=== PATIENT | male | born 1940 | race Caucasian/White ===

== ENCOUNTER → 2018-10-21 | Outpatient (CLI) | payer MEDICARE ==
[~2018-10-21] MED LIST: TELM40T PO; TMSL.4C PO; TRAM-21 PO
== END ==
LOC: RAD 08:05
PROVIDERS: ATTEND Family Medicine
DX: M54.5 Low back pain (principal); Z53.8 Procedure and treatment not carried out for other reasons

== ENCOUNTER → 2019-03-30 | Outpatient (CLI) | payer MEDICARE | LOC: CARD 11:45 | PROVIDERS: ATTEND Family Medicine | DX: I49.9 Cardiac arrhythmia, unspecified (principal) ==

== ENCOUNTER 2023-01-22 04:11 | Emergency (ER) | payer MEDICARE ==
[~2023-01-22] VITALS: Ht 182.9 cm; Wt 75.0 kg
[2023-01-22 05:07] LABS: BASOPHILS % (AUTO) 1 % (0-10); EOSINOPHILS # (AUTO) 0.1 10^3/uL (0.0-0.3); EOSINOPHILS % (AUTO) 2 % (0-10); HEMATOCRIT 37 % (40-54); HEMOGLOBIN 12.8 g/dL (13.3-17.7); LYMPHOCYTES % (AUTO) 28 % (12-44); MEAN CORPUSCULAR HEMOGLOBIN 30 pg (25-34); MEAN CORPUSCULAR HGB CONC 35 g/dL (32-36); MEAN CORPUSCULAR VOLUME 87 fL (80-99); MEAN PLATELET VOLUME 10.4 fL (9.0-12.2); MONOCYTES # (AUTO) 0.6 10^3/uL (0.0-1.0); MONOCYTES % (AUTO) 9 % (0-12); NEUTROPHILS # (AUTO) 4.2 10^3/uL (1.8-7.8); NEUTROPHILS % (AUTO) 60 % (42-75); PLATELET COUNT 172 10^3/uL (130-400)
[2023-01-22 05:14] LABS: ALBUMIN 3.9 GM/DL (3.2-4.5); CHLORIDE 104 MMOL/L (98-107); POTASSIUM 3.3 MMOL/L (3.6-5.0); SODIUM 139 MMOL/L (135-145)
[2023-01-22 05:15] LABS: INR 1.1 (0.8-1.4)
[2023-01-22 05:16] LABS: AMYLASE 25 U/L (25-125); CALCIUM 8.8 MG/DL (8.5-10.1)
[2023-01-22 05:17] LABS: GLUCOSE 93 MG/DL (70-105); TOTAL PROTEIN 6.4 GM/DL (6.4-8.2)
[2023-01-22 05:18] LABS: CARBON DIOXIDE 26 MMOL/L (21-32)
[2023-01-22 05:19] LABS: BILIRUBIN,TOTAL 0.9 MG/DL (0.1-1.0)
[2023-01-22 05:20] LABS: ALKALINE PHOSPHATASE 49 U/L (40-136); GFR ESTIMATED 68
[2023-01-22 05:21] LABS: BUN/CREATININE RATIO 10
[2023-01-22 05:22] LABS: ERYTHROCYTE SEDIMENTATION RATE 15 MM/HR (0-30)
[2023-01-22 05:23] LABS: ALANINE AMINOTRANSFERASE 10 U/L (0-55); MAGNESIUM 2.3 MG/DL (1.6-2.4)
[2023-01-22 05:24] LABS: LIPASE 16 U/L (8-78)
[2023-01-22] MEDS ORDERED: LACTATED RINGERS 1,000 ML IV ONE ×2 (05:30→07:30)
[2023-01-22 05:32] LABS: ACETAMINOPHEN < 10 UG/ML (10-30)
[2023-01-22 05:44] LABS: TSH (THYROID ANALYZER) 1.27 UIU/ML (0.35-4.94)
[2023-01-22 05:52] LABS: BILIRUBIN,URINE 1+ (NEGATIVE); CLARITY,URINE CLEAR; COLOR,URINE DARK YELLOW; GLUCOSE, URINE (UA) TRACE (NEGATIVE); KETONES,URINE NEGATIVE (NEGATIVE); LEUKOCYTE ESTERASE ,URINE NEGATIVE (NEGATIVE); NITRITE,URINE NEGATIVE (NEGATIVE); PROTEIN,URINE TRACE (NEGATIVE)
[2023-01-22 06:10] LABS: AMPHETAMINE SCREEN, URINE NEGATIVE (NEGATIVE); BARBITURATE SCREEN URINE NEGATIVE (NEGATIVE); BENZODIAZEPINES SCREEN URINE NEGATIVE (NEGATIVE); CANNABINOID SCREEN, URINE NEGATIVE (NEGATIVE); COCAINE SCREEN URINE NEGATIVE (NEGATIVE); METHADONE STAT NEGATIVE (NEGATIVE); OPIATE SCREEN URINE NEGATIVE (NEGATIVE); OXYCODONE STAT NEGATIVE (NEGATIVE); PROPOXYPHENE STAT NEGATIVE (NEGATIVE); TRICYCLIC ANTIDEPRESSANTS SCRE NEGATIVE (NEGATIVE)
[2023-01-22 06:14] LABS: AMORPHOUS SEDIMENT,UR FEW AMOR URATES /LPF; BACTERIA,URINE NEGATIVE /HPF; SQUAMOUS EPITHELIAL CELL,UR RARE /HPF; WBC,URINE 0-2 /HPF
--- NOTE | 2023-01-22 06:23 | ED General ---
General Chief Complaint: Altered Mental Status Stated Complaint: AMS Source of Information: Patient, EMS, Family (DAUGHTER) Exam Limitations: Other (PT IS VERY CONFUSED) (CANDICE BREWER DO) History of Present Illness Date Seen by Provider: Jan 22, 2023 Time Seen by Provider: 04:18 Initial Comments PT ARRIVES VIA EMS PT IS EXTREMELY CONFUSED--IS ORIENTED TO SELF ONLY--KNOWS NAME AND BIRTHDATE ONLY PT WAS FOUND BY POLICE--PT WAS ASLEEP IN HIS VEHICLE AT [facility], WITH THE CAR RUNNING AND IN NEUTRAL, WITH THE CAR SLOWLY ROLLING. PT EXTREMELY CONFUSED WHEN POLICE SAW HIM AND EMS WAS CALLED AND BROUGHT PT HERE. PT WAS AMBULATORY AT THE SCENE AND WAS WALKING WITHOUT DIFFICULTY. EMS REPORT THAT THE POLICE WERE INVOLVED IN AN INCIDENT WITH HIM DURING THE DAY SHIFT AND PT'S TRUCK WAS TOWED. THEY DO NOT KNOW DETAILS BEYOND THAT. ON ARRIVAL, PT IS CONFUSED TO PLACE, TIME, SITUATION, AND HAS AN EXTREMELY POOR MEMORY. HE HAS NO IDEA WHERE HE IS OR WHERE HE HAS BEEN OR HOW HE GOT HERE. HE HAS NO IDEA WHAT TOWN HE IS IN OR THAT HE IS IN A HOSPITAL, OR CAME BY AMBULANCE OR THAT THE POLICE HAVE BEEN WITH HIM TODAY. HE DOES SEEM A LITTLE HARD OF HEARING BUT HE ALSO HAS DIFFICULTY FOLLOWING COMMANDS, AND SEEMS TO HAVE PROBLEMS WITH COGNITION . HE REPEATS HE IS THIRSTY SEVERAL TIMES ON ARRIVAL. 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 HE DOES STATE HE LIVES ALONE. HE IS NOT SURE IF HE HAS ANY CHILDREN OR NOT. THEN HE LATER STATES HE HAS A DAUGHTER NAMED KATARZYNA AND SHE LIVES IN [place] AND HE HAS 6 GRANDCHILDREN. HE STATES HE DOES NOT KNOW IF HE HAS ANY OTHER CHILDREN. HE STATES HE DOES NOT KNOW IF HE HAS ANY BROTHERS OR SISTERS. 0430--[facility] POLICE CALLED, AND HAVE LOCATED PT'S DAUGHTER AND CALLED HER. HER NAME IS KATARZYNA BENDER ( MORGAN ) AND PHONE NUMBER IS [phone]. I CALLED THE DAUGHTER, WHO LIVES IN [place]. SHE REPORTS THAT HE LIKELY HAS DEMENTIA, HE HAS HAD PROGRESSIVE MEMORY LOSS AND CONFUSION. HE HAS ADAMANTLY REFUSED TO GO TO THE DOCTOR ( HE HAD BEEN A DR. HOGAN PT, BUT HAS NOT SEEN A DR IN YEARS) HE HAS NOT BEEN ABLE TO MANAGE HIS FINANCES, AND SHE HAS HAD TO MANAGE HIS FINANCES FOR THE LAST YEAR. SHE HAS REPEATEDLY REFUSED MEALS ON WHEELS. HE HAS VERY ADAMANTLY REFUSED TO GO TO ASSISTED LIVING--SHE STATES HE DEFINITELY NEEDS TO BE ADMITTED TO SOME TYPE OF NURSING FACILITY, HE CAN NO LONGER TAKE CARE OF HIMSELF. SHE DOES STATE THAT SHE WAS CONTACTED BY A LADY ( A STRANGER ) LAST NIGHT, BECAUSE THE PATIENT HAD COME TO THIS STRANGER'S HOUSE AND TOLD HER THAT HE RAN OUT OF GAS, AND DID NOT HAVE ANY MONEY, AND SHE GAVE HIM $20 AND A GAS CAN AND HE APPARENTLY WALKED TO THE GAS STATION AND GOT GAS FOR HIS TRUCK. SHE DOES STATE THAT HE HAS IT INGRAINED IN HIS HEAD THAT HOSPITALS ARE WHERE PEOPLE GO TO , AND HAS ALWAYS ADAMANTLY REFUSED TO GO TO HOSPITAL FOR ANYTHING. ( PT IS UNAWARE THAT HE IS IN A HOSPITAL AT THIS TIME--HE HAS NO IDEA WHERE HE IS AT THIS TIME ) PT DOES NOT HAVE ANY D.P.O.A. AND SHE HAS NOT PURSUED GETTING THIS DONE. SHE STATES THAT HE CANNOT MAKE DECISIONS FOR HIMSELF. SHE DOES STATE THAT "I'M NOT THAT CLOSE TO HIM" BUT HAS MADE SOME EFFORTS TO ASSIST HIM NOTED ABOVE. SHE AGREES THAT HE IS A DANGER TO HIMSELF AND OTHERS, ESPECIALLY IN LIGHT OF THE EVENTS OF THE LAST 24 HOURS, INVOLVING HIM DRIVING A VEHICLE. (CANDICE BREWER DO) Allergies and Home Medications Allergies Coded Allergies: No Known Drug Allergies (Unverified , 02/23/13) Patient Home Medication List Home Medication List Reviewed: Yes (CANDICE BREWER DO) No Active Prescriptions or Reported Meds Review of Systems Review of Systems Constitutional: see HPI (THIRST) Respiratory: no symptoms reported Cardiovascular: no symptoms reported Gastrointestinal: no symptoms reported Musculoskeletal: no symptoms reported Psychiatric/Neurological: See HPI (CANDICE BREWER DO) Past Hrqvpym-Pbglqa-Drqcwk Hx Patient Social History Smoking Status: Unknown if Ever Smoked Smokeless Tobacco Frequency: Unknown if Ever Used Use of E-Cig and/or Vaping Sim: Unknown if Ever Used Substance use?: Unable to obtain Alcohol Use?: Unable to obtain (CANDICE BREWER DO) Past Medical History Surgery/Hospitalization HX: ALL HISTORY IS UNKNOWN Neurological: Yes (SUSPECTED DEMENTIA) (CANDICE BREWER DO) Physical Exam Vital Signs Vital Signs - First Documented 01/22/23 04:11 Temp 37.1 Pulse 83 Resp 16 B/P (MAP) 165/96 (119) Pulse Ox 98 O2 Delivery Room Air (TAMELA PEREZ MD) Vital Signs Capillary Refill : (CANDICE BREWER DO) Height, Weight, BMI Height: '" Weight: 211lbs. oz. 95.572189ea; BMI Method: General Appearance: No Apparent Distress, WD/WN HEENT: PERRL/EOMI, Other (DENTURES ) Neck: Normal Inspection Respiratory: Normal Breath Sounds, No Accessory Muscle Use, No Respiratory Distress Cardiovascular: Regular Rate, Rhythm, No Edema, No JVD, No Murmur, Normal Peripheral Pulses Gastrointestinal: Non Tender, Soft Back: No CVA Tenderness Extremity: Normal Capillary Refill, Normal Range of Motion, Non Tender, No Calf Tenderness, No Pedal Edema, Other (MINOR ABRASION TO DORSAL ASPECT OF RIGHT HAND OVER 4TH/5TH MCP JOINTS. NON-TENDER. ) Neurologic/Psychiatric: Alert, No Motor/Sensory Deficits, Disoriented, Other (PT WITH CONFUSION, AND PROBLEMS WITH COGNITION AND FOLLOWING COMMANDS. EXTREMELY POOR MEMORY. SPEECH IS CLEAR. GAIT IS STEADY. NO FOCAL DEFICITS. ) Skin: Normal Color, Warm/Dry (CANDICE BREWER DO) Focused Exam Lactate Level 01/22/23 04:56: Lactic Acid Level 1.04 (TAMELA PEREZ MD) Lactic Acid Level Laboratory Tests Test 01/22/23 04:56 Lactic Acid Level 1.04 MMOL/L (0.50-2.00) (TAMELA PEREZ MD) Progress/Results/Core Measures Suspected Sepsis SIRS Temperature: Pulse: Respiratory Rate: Laboratory Tests 01/22/23 04:56: White Blood Count 7.0 Blood Pressure / Mean: 01/22/23 04:56: Lactic Acid Level 1.04 Laboratory Tests 01/22/23 04:56: Creatinine 1.10, INR Comment 1.1, Platelet Count 172, Total Bilirubin 0.9 (DANIELLACANDICE Dottie HESTER) Results/Orders Lab Results Laboratory Tests Test 01/22/23 04:56 01/22/23 05:11 01/22/23 05:37 Range/Units White Blood Count 7.0 4.3-11.0 10^3/uL Red Blood Count 4.29 L 4.30-5.52 10^6/uL Hemoglobin 12.8 L 13.3-17.7 g/dL Hematocrit 37 L 40-54 % Mean Corpuscular Volume 87 80-99 fL Mean Corpuscular Hemoglobin 30 25-34 pg Mean Corpuscular Hemoglobin Concent 35 32-36 g/dL Red Cell Distribution Width 17.0 H 10.0-14.5 % Platelet Count 172 130-400 10^3/uL Mean Platelet Volume 10.4 9.0-12.2 fL Immature Granulocyte % (Auto) 1 % Neutrophils (%) (Auto) 60 42-75 % Lymphocytes (%) (Auto) 28 12-44 % Monocytes (%) (Auto) 9 0-12 % Eosinophils (%) (Auto) 2 0-10 % Basophils (%) (Auto) 1 0-10 % Neutrophils # (Auto) 4.2 1.8-7.8 10^3/uL Lymphocytes # (Auto) 2.0 1.0-4.0 10^3/uL Monocytes # (Auto) 0.6 0.0-1.0 10^3/uL Eosinophils # (Auto) 0.1 0.0-0.3 10^3/uL Basophils # (Auto) 0.0 0.0-0.1 10^3/uL Immature Granulocyte # (Auto) 0.0 0.0-0.1 10^3/uL Erythrocyte Sedimentation Rate 15 0-30 MM/HR Prothrombin Time 14.0 12.2-14.7 SEC INR Comment 1.1 0.8-1.4 Activated Partial Thromboplast Time 35 24-35 SEC Sodium Level 139 135-145 MMOL/L Potassium Level 3.3 L 3.6-5.0 MMOL/L Chloride Level 104 98-107 MMOL/L Carbon Dioxide Level 26 21-32 MMOL/L Anion Gap 9 5-14 MMOL/L Blood Urea Nitrogen 11 7-18 MG/DL Creatinine 1.10 0.60-1.30 MG/DL Estimat Glomerular Filtration Rate 68 BUN/Creatinine Ratio 10 Glucose Level 93 70-105 MG/DL Lactic Acid Level 1.04 0.50-2.00 MMOL/L Calcium Level 8.8 8.5-10.1 MG/DL Corrected Calcium 8.9 8.5-10.1 MG/DL Magnesium Level 2.3 1.6-2.4 MG/DL Total Bilirubin 0.9 0.1-1.0 MG/DL Aspartate Amino Transf (AST/SGOT) 20 5-34 U/L Alanine Aminotransferase (ALT/SGPT) 10 0-55 U/L Alkaline Phosphatase 49 40-136 U/L Troponin I 0.044 H <0.028 NG/ML Total Protein 6.4 6.4-8.2 GM/DL Albumin 3.9 3.2-4.5 GM/DL Amylase Level 25 25-125 U/L Lipase 16 8-78 U/L TSH [place] Testing 1.27 0.35-4.94 UIU/ML Acetaminophen Level < 10 L 10-30 UG/ML Serum Alcohol < 10 <10 MG/DL Influenza Type A (RT-PCR) Not Detected Not Detecte Influenza Type B (RT-PCR) Not Detected Not Detecte SARS-CoV-2 RNA (RT-PCR) Not Detected Not Detecte Urine Color DARK YELLOW Urine Clarity CLEAR Urine pH 6.0 5-9 Urine Specific [place] >=1.030 1.016-1.022 Urine Protein TRACE H NEGATIVE Urine Glucose (UA) TRACE H NEGATIVE Urine Ketones NEGATIVE NEGATIVE Urine Nitrite NEGATIVE NEGATIVE Urine Bilirubin 1+ H NEGATIVE Urine Urobilinogen 4.0 < = 1.0 MG/DL Urine Leukocyte Esterase NEGATIVE NEGATIVE Urine RBC (Auto) NEGATIVE NEGATIVE Urine RBC 2-5 H /HPF Urine WBC 0-2 /HPF Urine Squamous Epithelial Cells RARE /HPF Urine Crystals PRESENT H /LPF Urine Amorphous Sediment FEW HENRY URATES H /LPF Urine Bacteria NEGATIVE /HPF Urine Casts NONE /LPF Urine Mucus LARGE H /LPF Urine Culture Indicated NO Urine Opiates Screen NEGATIVE NEGATIVE Urine Oxycodone Screen NEGATIVE NEGATIVE Urine Methadone Screen NEGATIVE NEGATIVE Urine Propoxyphene Screen NEGATIVE NEGATIVE Urine Barbiturates Screen NEGATIVE NEGATIVE Ur Tricyclic Antidepressants Screen NEGATIVE NEGATIVE Urine Phencyclidine Screen NEGATIVE NEGATIVE Urine Amphetamines Screen NEGATIVE NEGATIVE Urine Methamphetamines Screen NEGATIVE NEGATIVE Urine Benzodiazepines Screen NEGATIVE NEGATIVE Urine Cocaine Screen NEGATIVE NEGATIVE Urine Cannabinoids Screen NEGATIVE NEGATIVE (TAMELA PEREZ MD) My Orders Orders - TAMELA PEREZ MD Medically Cleared Psych Txfr (01/22/23 12:59) (TAMELA PEREZ MD) Medications Given in ED Current Medications Medications Dose Ordered Sig/Odalys Route Start Time Stop Time Status Last Admin Dose Admin Lactated Ringer's 1,000 ml @ 0 mls/hr Q0M ONCE IV 01/22/23 05:30 01/22/23 05:31 DC 01/22/23 05:33 999 MLS/HR Lactated Ringer's 1,000 ml @ 0 mls/hr Q0M ONCE IV 01/22/23 07:30 01/22/23 07:31 DC 01/22/23 08:32 1,000 MLS/HR (TAMELA PEREZ MD) Vital Signs/I&O 01/22/23 04:11 Temp 37.1 Pulse 83 Resp 16 B/P (MAP) 165/96 (119) Pulse Ox 98 O2 Delivery Room Air (TAMELA PEREZ MD) Vital Signs/I&O Capillary Refill : (CANDICE BREWER DO) Progress Note : Progress Note GIVEN: -IV FLUIDS LABS INCLUDING CBC, CMP, CARDIAC ENZYMES, UA, COVID/FLU ORDERED TROPONIN IS SLIGHTLY ELEVATED AT 0.04. UA WITH MICROSCOPIC BLOOD, NO EVIDENCE OF INFECTION. OTHER LABS ARE ESSENTIALLY NORMAL COVID AND FLU ARE NEGATIVE EKG IS UNREMARKABLE CXR UNREMARKABLE CT HEAD SHOWS NO ACUTE CHANGES, HAS CHRONIC MICROVASCULAR CHANGES. NO DETERIORATION IN PT'S CONDITION DURING MY CARE. VITALS ARE STABLE, BP IS IN 160'S SYSTOLIC. WILL HOLD OFF ON TREATMENT AT THIS TIME, PT IS OTHERWISE STABLE. PT CONTINUES TO HAVE DIFFICULTY WITH COGNITION AND FOLLOWING COMMANDS FOR EXAMPLE, PT STOOD AT BEDSIDE AND WAS ABLE TO GIVE A URINE SPECIMEN, BUT AFTERWARDS, HE JUST STOOD AT BEDSIDE. WHEN STAFF ASKED WHAT HE WAS DOING, HE STATES HE DID NOT KNOW WHAT TO DO NOW. STAFF ADVISED HIM TO SIT DOWN, WHICH HE DID--HE SAT ON THE SIDE OF THE BED AND THEN DID NOT KNOW WHAT TO DO AFTER THAT. STAFF INSTRUCTED HIM TO PUT HIS FEET UP, AND HE DID RAISE ONE LEG UP WHILE SITTING DOWN. SHE HAD TO INSTRUCT HIM TO LAY BACK ON THE BED AND STRETCH HIS LEGS OUT, WHICH HE DID. PT CONTINUES TO BE DISORIENTED TO PLACE, TIME AND SITUATION AND CANNOT STATE ANY OF THE EVENTS THAT HAVE GONE ON TONIGHT OR EVEN WHILE HE HAS BEEN HERE. PT FREQUENTLY WANDERS OUT OF THE ROOM, BUT IS EASILY RE-DIRECTED BACK INTO ROOM. THUS FAR, PT HAS BEEN COOPERATIVE WITH ALL CARE HERE, HE JUST NEEDS CONSTANT RE- DIRECTION AND VERY SIMPLE, VERY SPECIFIC INSTRUCTIONS. HAVE DISCUSSED WITH DR. JACKSON, PHYSICIAN AT [facility], AND SHE ADVISES THAT PT IS CONFUSED, AND DOES NOT HAVE D.P.O.A., CANNOT MAKE HIS OWN DECISIONS, AND IS A THREAT TO HARM HIMSELF OR OTHERS--BASED ON EVENTS OF THE LAST 24 HOURS, THAT PT WILL HAVE TO HAVE A MENTAL HEALTH SCREEN HERE, IN ORDER TO GET AN EMERGENCY COURT ORDER FOR EMERGENCY GUARDIANSHIP AND INVOLUNTARY ADMIT TO [facility], AND EVENTUAL PLACEMENT IN SNF 0600--CARE TURNED OVER TO DR. PEREZ AT SHIFT CHANGE. BREAKFAST TRAY HAS BEEN ORDERED. (CANDICE BREWER DO) Progress Note : Time: 13:29 Progress Note Patient has been pleasantly confused, up and out of his room. Easily redirectable. Accepted by Dr Ordaz to [place] [employer] here to transport as he is involuntary (TAMELA PEREZ MD) ECG Initial ECG Impression Date: Jan 22, 2023 Initial ECG Impression Time: 04:35 Initial ECG Rate: 75 Initial ECG Rhythm: Normal Sinus Initial ECG Intervals CT 200 QRS 99 QT/QTC 381/409 Initial ECG Impression: Normal, Nonspecific Changes (INFERIOR Q WAVES), SVT (99), 2nd Degree AV Block (481/409) Initial ECG Comparisson: No Previous ECG Available Comment INTERPRETED BY ME (CANDICE BREWER DO) Diagnostic Imaging Comments CXR--PER RADIOLOGIST REPORT FINDINGS: The lungs are clear. No failure, effusion or pneumothorax. 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 There are no masses or hemorrhages. There are no extra-axial fluid collections. There are some areas of decreased density in the periventricular white matter of both hemispheres consistent with chronic small vessel ischemic change. IMPRESSION: Chronic ischemic leukoencephalopathy. No acute abnormality seen. Reviewed: Reviewed by Me, Reviewed/Discussed (CANDICE BREWER DO) Departure Communication (Admissions) 0552--SPOKE WITH DR. JACKSON, REGARDING PLACEMENT AT [facility]. SHE ADVISED ON STEPS TO TAKE TO GET EMERGENCY COURT ORDERED GUARDIANSHIP AND INVOLUNTARY PLACEMENT. (CANDICE BREWER DO) Impression Primary Impression: Confusion Additional Impressions: SUSPECTED DEMENTIA UNSAFE BEHAVIOR Disposition: 65 XFER TO PSYCH HOSP/UNIT Condition: Stable Transfer Medically Cleared for Xfer: Yes Transfer Reason: Exceeds level of care Time Spoke to Accepting Phy: 13:31 Transfer Progress Notes Accepted by nursing staff on behalf of Dr Ordaz. - no doc to doc reportedly required Transfer Time: 13:00 Transfer Facility: [facility] Method of Transfer: Law Enforcement (TAMELA PEREZ MD) Departure-Patient Inst. Referrals: JOIE HOGAN DO (PCP/Family) Primary Care Physician Scripts No Active Prescriptions or Reported Meds Copy Copies To 1: JOIE HOGAN LISA K DO Jan 22, 2023 06:23 TAMELA PEREZ MD Jan 22, 2023 12:59
--- NOTE | 2023-01-22 07:11 | Diagnostic Imaging Report ---
PROCEDURE: CT head wo r/o stroke. TECHNIQUE: Multiple contiguous axial images were obtained through the brain without the use of intravenous contrast. Auto Exposure Controls were utilized during the CT exam to meet ALARA standards for radiation dose reduction. INDICATION: Altered mental status The ventricles are normal in size, shape and position. There are no masses or hemorrhages. There are no extra-axial fluid collections. There are some areas of decreased density in the periventricular white matter of both hemispheres consistent with chronic small vessel ischemic change. IMPRESSION: Chronic ischemic leukoencephalopathy. No acute abnormality seen. I agree with preliminary interpretation. Dictated by: Dictated on workstation # [id number]
--- NOTE | 2023-01-22 08:23 | Diagnostic Imaging Report ---
INDICATION: Altered mental status. Compared 01/08/2014 FINDINGS: The lungs are clear. No failure, effusion or pneumothorax. IMPRESSION: Stable chest Dictated by: Dictated on workstation # [id number]
[2023-01-22 13:38] VITALS: BP 153/79
== END 2023-01-22 13:38 ==
LOC: EDUNIT# 04:11 → ER 04:13
DX: S60.511A Abrasion of right hand, initial encounter (principal); R41.0 Disorientation, unspecified; R46.89 Other symptoms and signs involving appearance and behavior; R79.89 Other specified abnormal findings of blood chemistry; Z20.822 Contact with and (suspected) exposure to COVID-19; X58.XXXA Exposure to other specified factors, initial encounter
CPT/HCPCS: 70450; 71045; 80053; 80306; 81000; 82150; 83605; 83690; 83735; 84443; 84484; 85025; 85610; 85652; 85730; 87636; 93005; 99284; G0480 ×2; 36415; 80320; 80329